=== PATIENT | female | born 1980 | race Caucasian/White ===

== ENCOUNTER 2018-06-22 11:03 | Emergency (ER) | payer MEDICARE, MEDICAID ==
--- NOTE | 2018-06-22 11:20 | EDM.PDOCBH ---
ED HPI GENERAL MEDICAL PROBLEM - General Chief Complaint: Behavioral/Psych Stated Complaint: CUT TO WRIST Time Seen by Provider: 06/22/18 11:09 Source of Information: Reports: Patient History Limitations: Reports: No Limitations - History of Present Illness INITIAL COMMENTS - FREE TEXT/NARRATIVE: History of present illness: []Patient has a legal guardian and was at home when she became overwhelmed at her residence at the house and her guardian accusing her of hiding things on her phone from her. Patient lashed out by superficially cutting her right wrist multiple times. She is adamant that she was not suicidal but this gives her relief from frustration. These are at bedside with the patient and are not putting her on a psychiatric hold at this time. Review of systems: As per history of present illness and below otherwise all systems reviewed and negative. Past medical history: As per history of present illness and as reviewed below otherwise noncontributory. Surgical history: As per history of present illness and as reviewed below otherwise noncontributory. Social history: No reported history of drug or alcohol abuse. Family history: As per history of present illness and as reviewed below otherwise noncontributory. Physical exam: General: Well developed, well nourished in NAD HEENT: Atraumatic, normocephalic, pupils reactive, negative for conjunctival pallor or scleral icterus, mucous membranes moist, throat clear, neck supple, nontender, trachea midline. Lungs: Clear to auscultation, breath sounds equal bilaterally, chest nontender. Heart: S1S2, regular, negative for clicks, rubs, or JVD. Abdomen: NABS, Soft, nondistended, nontender. Negative for masses or hepatosplenomegaly. Negative for costovertebral tenderness. Pelvis: Stable nontender. Genitourinary: Deferred. Rectal: Deferred. Extremities: Left volar wrist with multiple superficial horizontal abrasions, negative for cords or calf pain. Neurovascular unremarkable. Neuro: Awake, alert, oriented. Cranial nerves II through XII unremarkable. Cerebellum unremarkable. Motor and sensory unremarkable throughout. Exam nonfocal. Skin:warm and dry Diagnostics: None Therapeutics: Tetanus was updated ED Course: Remarkable Impression: Superficial cutting left wrist Prescriptions: None Plan: Follow-up [facility] Definitive disposition and diagnosis as appropriate pending reevaluation and review of above. - Related Data Allergies Allergy/AdvReac Type Severity Reaction Status Date / Time diphenhydramine Allergy Other Verified 06/22/18 11:06 [From Benadryl] quetiapine [From Seroquel] Allergy Other Verified 06/22/18 11:06 Home Meds: Home Meds Desmopressin 0.2 mg PO DAILY 06/22/18 [History] Docusate Sodium [Colace] 100 mg PO BID 06/22/18 [History] Estradiol [Estrace] 2 mg PO DAILY 06/22/18 [History] Ibuprofen [Ibu] 800 mg PO DAILY 06/22/18 [History] Montelukast [Singulair] 10 mg INH DAILY 06/22/18 [History] Ondansetron [Zofran] 4 mg PO ASDIRECTED PRN 06/22/18 [History] Pantoprazole [ProTONIX] 40 mg PO DAILY 06/22/18 [History] buPROPion [buPROPion XL] 300 mg PO DAILY 06/22/18 [History] lamoTRIgine [Lamictal] 100 mg PO DAILY 06/22/18 [History] Past Medical History - Past Health History Medical/Surgical History: Denies Medical/Surgical History - Past Surgical History GI Surgical History: Reports: Other (See Below) Other GI Surgeries/Procedures: hemmorrhoid surgery Social & Family History - Family History Family Medical History: Noncontributory - Tobacco Use Smoking Status *Q: Current Every Day Smoker Years of Tobacco use: 20 Packs/Tins Daily: 0.5 - Recreational Drug Use Recreational Drug Use: No ED ROS GENERAL - Review of Systems Review Of Systems: ROS reveals no pertinent complaints other than HPI. ED EXAM, BEHAVIORAL HEALTH - Physical Exam Exam: See Below (See history of present illness) COURSE, BEHAVIORAL HEALTH COMP - Course Vital Signs: Last Vital Signs Temp 98.0 F 06/22/18 12:28 Pulse 68 06/22/18 12:28 Resp 18 06/22/18 12:28 BP 130/73 06/22/18 12:28 Pulse Ox 98 06/22/18 12:28 Orders, Labs, Meds: Active Orders 24 hr Category Date Time Status Vaccines to be Administered [RC] PER UNIT ROUTINE Care 06/22/18 11:53 Active Medications Discontinued Medications Generic Name Dose Route Start Last Admin Trade Name Freq PRN Reason Stop Dose Admin Bacitracin 1 dose 06/22/18 12:00 06/22/18 12:06 Bacitracin Oint 1 Gm TOP 06/22/18 12:01 1 dose ONETIME ONE Administration Diphtheria/Tetanus/Acell Pertussis 0.5 ml 06/22/18 11:53 06/22/18 12:05 Adacel IM 06/22/18 11:54 0.5 ml .ONCE ONE Administration Departure - Departure Time of Disposition: 11:54 Disposition: Home, Self-Care 01 Condition: Good Clinical Impression: Deliberate self-cutting - Discharge Information *PRESCRIPTION DRUG MONITORING PROGRAM REVIEWED*: No *COPY OF PRESCRIPTION DRUG MONITORING REPORT IN PATIENT PERLA: No Instructions: Self-Destructive Behavior Referrals: Mine Loaiza MD [Primary Care Provider] - Forms: ED Department Discharge Additional Instructions: The following information is given to patients seen in the emergency department who are being discharged to home. This information is to outline your options for follow-up care. We provide all patients seen in our emergency department with a follow-up referral. The need for follow-up, as well as the timing and circumstances, are variable depending upon the specifics of your emergency department visit. If you don't have a primary care physician on staff, we will provide you with a referral. We always advise you to contact your personal physician following an emergency department visit to inform them of the circumstance of the visit and for follow-up with them and/or the need for any referrals to a consulting specialist. The emergency department will also refer you to a specialist when appropriate. This referral assures that you have the opportunity for follow-up care with a specialist. All of these measure are taken in an effort to provide you with optimal care, which includes your follow-up. Under all circumstances we always encourage you to contact your private physician who remains a resource for coordinating your care. When calling for follow-up care, please make the office aware that this follow-up is from your recent emergency room visit. If for any reason you are refused follow-up, please contact the [facility] Emergency Department at and asked to speak to the emergency department charge nurse. Follow up with [facility] services or primary care [facility] [address] [place] [phone] - My Orders Last 24 Hours: My Active Orders 06/22/18 11:53 Vaccines to be Administered [RC] PER UNIT ROUTINE - Assessment/Plan Last 24 Hours: My Active Orders 06/22/18 11:53 Vaccines to be Administered [RC] PER UNIT ROUTINE
[2018-06-22] MEDS ORDERED: Diphtheria,Pertussis(Acell),Tetanus Vaccine 0.5 ML Syringe IM ONE (11:53)
[2018-06-22] MEDS ORDERED: Bacitracin Oint 1 GM U/D Packet TOP ONE (12:00)
== END 2018-06-22 12:11 | disposition home or self-care (01) ==
LOC: MW.ED 11:03
DX: S61.512A Laceration without foreign body of left wrist, initial encounter (principal); Z23 Encounter for immunization; X78.9XXA Intentional self-harm by unspecified sharp object, initial encounter
CPT/HCPCS: 90471; 90715; 99283